=== PATIENT | male | born 1940 | race Caucasian/White ===

== ENCOUNTER 2017-01-11 14:04 | Observation (INO) | payer OTHER, BC ==
--- NOTE | 2017-01-11 14:27 | DR.GENAD ---
HPI - PCP Primary Care Physician: JANET - HPI Comment HPI Comment: PATIENTS SAID SMALL ABRASIONS ON PATIENTS BACK FROM SRATCHING IS OOZING BLOOD. PATIENT IS ON PLAVIX AND XARELTO. SHE HAS CHANGE FEW TIMES HIS UNDER CLOTHES. PATIENT ALSO HAVE RASH IN THE GROIN THAT IS WEEPING BLOODY SECREASION. HE HAS PERNICIOUS AND IRON DEFFICIECY ANEMIA. - Complaint/Symptoms Chief Complaint Doctors Comments: BLEEDING, ON BLOOD THINNERS. Chief Complaint:: STATES THAT LAST NIGHT, PT. HAD SOME BLOOD ON THE BACK OF HIS SHIRT AND SHE WASN'T SURE WHERE IT WAS COMING FROM. HE HAS ALSO HAD SOME BLEEDING FROM HIS GROIN/TESTICLE AREA. THERE WAS SMALL, SCATTERED SPOTS OF DRIED BLOOD ON A WHITE T-SHIRT THE HAD BROUGHT FROM HOME. PT. HAS REDNESS NOTED TO BOTH SIDES OF HIS GROIN BUT NO ACTIVE BLEEDING WAS SEEN UPON ARRIVAL TO ER. T - Nurses notes reviewed Nurses Notes Review: Yes - Source History Provided: Significant Other, EMS - Mode of Arrival Mode of Arrival: EMS - Timing Onset of Chief Complaint: 01/11/17 Came on: Suddenly - Duration Duration: Constant Duration: Days - Severity Severity: Moderate PMH - PMH Past Medical History: Yes Past Medical History: Anemia, Arthritis, Coronary Artery Disease, CVA, Diabetes , Dyslipidemia, Hypertension, [place], Renal Disease Past Surgical History: Yes Surgical History: Angioplasty/Stents, Cholecystectomy, Ortho Surgery, Other - Family History History of Family Medical Conditions: Yes Family Medical History: Diabetes Mellitus, [place], Hypertension - Social History Does patient currently use any type of tobacco product: No Have you used tobacco products in the last 12 months: No Type of Tobacco Use: None Does any household member use tobacco: No Alcohol Use: None Do you use any recreational Drugs:: No Lives With: Spouse Lives Where: Home - infectious screening In the last 2 months have you had wt loss of >10#?: NO Have you had fever, night sweats or hemotysis?: No Have you traveled outside the country in the last 6 months?: No Isolation: Standard ROS - Review of Systems Constitutional: Weakness, Fatigue, Loss of Appetite. negative: Chills, Fever Eyes: No Symptoms Reported. negative: Eye Pain, Discharge ENTM: Nose Congestion. negative: Ear Pain, Nose Discharge, Throat Pain Respiratoy: Non-Productive Cough, Short of Breath (ON EXERTION). negative: Wheezing, Hemoptysis Cardiovascular: Edema. negative: Chest Pain Gastrointestinal/Abdominal: No Symptoms Reported. negative: Abdominal Pain Genitourinary: No Symptoms Reported Neurological: Weakness, Dizziness Musculoskeletal: Back Pain, Muscle Pain Integumentary: Dryness Hematologic/Lymphatic: Anemia Endocrine: negative: Flushing All Other Systems: Reviewed and Negative PE - Vital Signs Vitals: Temperature 97.2 F Pulse Rate 53 Respiratory Rate 16 Blood Pressure [Right Calf] 191/84 Blood Pressure [Right Arm] 122/69 Blood Pressure [Left Arm] 190/80 Blood Pressure 184/79 O2 Sat by Pulse Oximetry 96 - General Limitations: No Limitations General Appearance: Alert - Head Head Exam: Normal Inspection - Eyes Eye exam: Normal Appearance - ENT ENT Exam: Normal External Ear Exam External Ear Exam: Normal External Inspection TM/Canal Exam: Bilateral Normal Nose Exam: Normal Nose Exam Mouth Exam: Normal Inspection Throat Exam: Normal Inspection - Neck Neck Exam: Trachea Midline - Chest Chest Inspection: Symmetric Chest Wall Rise - Respiratory Respiratory Exam: Normal Lung Sounds Bilat Respiratory Exam: Bilateral Clear to Auscultation - Cardiovascular Cardiovascular Exam: Regular Rate, Normal Rhythm, Normal Heart Sounds - Abdominal Exam Abdominal Exam: Normal Bowel Sounds, Soft. negative: Tenderness - Extremities Extremities Exam: Edema. negative: Tenderness - Back Back Exam: Paraspinal Tenderness - Neurologic Neurological Exam: Alert - Psychiatric Psychiatric Exam: Normal Affect, Normal Mood - Skin Skin Exam: Erythema MDM - Additional Information Additional Information Obtained From: Family - Differential Diagnosis Differential Diagnosis: HYPERCOAGULABLE STATE, ANEMIA, HEMORRHAGE, DEHYDRATION Course - Treatment Treatment: SEE ORDERS. - Education/Counseling Education/Counseling: Patient, Family, Education Educated On: Treatment, Diagnosis, Needs for Follow Up ROR - Labs Reviewed Laboratory Results Reviewed?: Yes Result Diagrams: 01/13/17 05:00 01/13/17 05:00 - Diagnosis Discharge Problem: Hypercoagulable state, Dehydration - Discharge Plan Disposition: ADMITTED INPATIENT Condition: Stable - Follow ups/Referrals - Instructions
[2017-01-11 14:49] LABS: BASOPHILS # (AUTO) 0.1 X10^3/uL (0.0-0.1); BASOPHILS % (AUTO) 1.1 % (0.2-1.0); EOSINOPHILS # (AUTO) 0.4 x10^3/uL (0.0-0.2); EOSINOPHILS % (AUTO) 4.2 % (0.9-2.9); HEMATOCRIT 28.7 % (42.0-54.0); HEMOGLOBIN 9.7 g/dL (13.5-18.0); LYMPHOCYTES # (AUTO) 1.6 X10^3/uL (1.3-2.9); LYMPHOCYTES % (AUTO) 17.5 % (21.0-51.0); MEAN CORPUSCULAR HEMOGLOBIN 29.1 pg (27.0-34.0); MEAN CORPUSCULAR HGB CONC 33.7 g/dL (33.0-35.0); MEAN CORPUSCULAR VOLUME 86.4 fL (80.0-100.0); MEAN PLATELET VOLUME 8.3 fL (7.4-11.0); MONOCYTES # (AUTO) 0.7 x10^3/uL (0.3-0.8); MONOCYTES % (AUTO) 7.5 % (0.0-13.0); NEUTROPHILS # (AUTO) 6.3 x10^3/uL (2.2-4.8); NEUTROPHILS % (AUTO) 69.7 % (42.0-75.0); PLATELET COUNT 221 X10^3/uL (150.0-450.0); RED BLOOD COUNT 3.32 X10^6/uL (4.7-6.0); RED CELL DISTRIBUTION WIDTH 18.3 % (11.6-16.5); WHITE BLOOD COUNT 9.1 X10^3/uL (3.6-10.0)
[2017-01-11 15:02] LABS: ALBUMIN 2.7 g/dL (3.4-5.0); CALCIUM 8.7 mg/dL (8.5-10.1); COR CA(FOR HYPOALB) 9.7 mg/dL (8.5-10.1); CREATININE 2.17 mg/dL (0.70-1.30); TOTAL PROTEIN 6.6 g/dL (6.4-8.2)
[2017-01-11] MEDS ORDERED: NIFEDIPINE CAP 10 MG ONE (17:02)
[2017-01-11] MEDS ORDERED: NIFEDIPINE CAP 10 MG PO ONE (17:08)
[2017-01-11] MEDS: NS 1000 ML 1,000 ML IV SCH (17:13)
[2017-01-11 18:25] LABS: BILIRUBIN,URINE NEGATIVE (NEGATIVE); BLOOD/HEMOGLOBIN,URINE 3+ (NEGATIVE); GLUCOSE, URINE 1+ (NEGATIVE); KETONES,URINE NEGATIVE (NEGATIVE); LEUKOCYTE ESTERASE ,URINE 3+ (NEGATIVE); NITRITES,URINE NEGATIVE (NEGATIVE); PROTEIN,URINE 2+ (NEGATIVE); UROBILINOGEN,URINE 1+ (NORMAL)
[2017-01-11 18:40] LABS: APPEARANCE,URINE HAZY (CLEAR); BACTERIA,URINE TRACE /HPF (NEGATIVE); COLOR,URINE YELLOW (YELLOW); RBC,URINE 0-2 /HPF (NEGATIVE); SQUAMOUS EPITHELIAL CELL,UR NEGATIVE /HPF (NEGATIVE)
[2017-01-11] MEDS: COREG TAB 25 MG PO SCH (21:31)
[2017-01-11] MEDS: COLACE CAP 100 MG PO SCH (21:31)
[2017-01-11] MEDS: ALDOMET PO SCH (21:31)
[2017-01-11] MEDS: PEPCID 20 MG IV PREMIX* 20 MG/50 ML BAG IV SCH (21:31)
[2017-01-11] MEDS: ATIVAN TAB 0.5 MG PO SCH (21:42)
[2017-01-11] MEDS: NYSTATIN POWDER TOP SCH (21:42)
[2017-01-11] MEDS: PHOSLO CAP 667 MG PO SCH (21:42)
[2017-01-11] MEDS: ROCEPHIN VIAL 1 GM 1 GM in NS 50 ML IV + SPIKE MINIBAG* 50 ML IV SCH (21:42)
[2017-01-11] MEDS: LANTUS SC SCH (21:55)
[2017-01-11] MEDS: PROTONIX INJ 40 MG VIAL IVP SCH (21:59)
[2017-01-11] MEDS: ZESTRIL TAB 10 MG PO SCH (21:59)
[2017-01-12 05:26] LABS: BASOPHILS # (AUTO) 0.1 X10^3/uL (0.0-0.1); BASOPHILS % (AUTO) 1.1 % (0.2-1.0); EOSINOPHILS # (AUTO) 0.3 x10^3/uL (0.0-0.2); EOSINOPHILS % (AUTO) 4.2 % (0.9-2.9); HEMATOCRIT 29.5 % (42.0-54.0); HEMOGLOBIN 9.9 g/dL (13.5-18.0); LYMPHOCYTES # (AUTO) 1.6 X10^3/uL (1.3-2.9); LYMPHOCYTES % (AUTO) 20.3 % (21.0-51.0); MEAN CORPUSCULAR HGB CONC 33.4 g/dL (33.0-35.0); MEAN PLATELET VOLUME 9.1 fL (7.4-11.0); MONOCYTES # (AUTO) 0.7 x10^3/uL (0.3-0.8); MONOCYTES % (AUTO) 8.4 % (0.0-13.0); NEUTROPHILS # (AUTO) 5.1 x10^3/uL (2.2-4.8); PLATELET COUNT 217 X10^3/uL (150.0-450.0); RED BLOOD COUNT 3.39 X10^6/uL (4.7-6.0); RED CELL DISTRIBUTION WIDTH 17.7 % (11.6-16.5); WHITE BLOOD COUNT 7.8 X10^3/uL (3.6-10.0)
[2017-01-12 05:40] LABS: ALBUMIN 2.9 g/dL (3.4-5.0); CALCIUM 8.9 mg/dL (8.5-10.1); CARBON DIOXIDE 21.2 mmol/L (21-32); COR CA(FOR HYPOALB) 9.8 mg/dL (8.5-10.1); CREATININE 2.32 mg/dL (0.70-1.30); TOTAL PROTEIN 6.9 g/dL (6.4-8.2)
[2017-01-12] MEDS: NS 1000 ML 1,000 ML IV SCH ×2 (06:07→19:54)
[2017-01-12] MEDS: NYSTATIN POWDER TOP SCH ×3 (06:10→21:01)
[2017-01-12] MEDS ORDERED: HumuLIN R SUBCUT PRN (06:16)
[2017-01-12] MEDS ORDERED: SYNTHROID 50 mcg TAB PO SCH (07:30)
[2017-01-12] MEDS ORDERED: LEXAPRO ONE (08:14)
[2017-01-12] MEDS: PHOSLO CAP 667 MG PO SCH ×2 (08:28→20:58)
[2017-01-12] MEDS: LEXAPRO PO SCH (08:28)
[2017-01-12] MEDS: VITAMIN C PO SCH (08:28)
[2017-01-12] MEDS: HEMOCYTE-PLUS PO SCH (08:28)
[2017-01-12] MEDS: COLACE CAP 100 MG PO SCH ×2 (08:29→20:58)
[2017-01-12] MEDS: CARDIZEM CD 180 MG PO SCH (08:29)
[2017-01-12] MEDS: ALDOMET PO SCH ×2 (08:29→20:58)
[2017-01-12] MEDS: PEPCID 20 MG IV PREMIX* 20 MG/50 ML BAG IV SCH (08:29)
[2017-01-12] MEDS: COREG TAB 25 MG PO SCH ×2 (08:29→20:59)
[2017-01-12] MEDS: PROTONIX INJ 40 MG VIAL IVP SCH (08:33)
[2017-01-12] MEDS: LANTUS SC SCH ×2 (09:00→20:59)
--- NOTE | 2017-01-12 10:31 | DR.H&P ---
H&P - History & Physical for Day of: H&P Date: 01/11/17 - Chief Complaint Chief Complaint: GENERALIZED WEAKNESS, POOR INTAKE, ABNORMAL BLEEDING - Allergies Allergies/Adverse Reactions: Allergies Allergy/AdvReac Type Severity Reaction Status Date / Time Gabapentin Allergy Verified 01/11/17 14:07 - History of Present Illness History of Present Illness: THIS IS A 76 YEAR OLD MALE, WHO IS A PATIENT OF OURS. HE PRESENTS TO THE EMERGENCY ROOM, VIA EMS, WITH REPORTING GENERALIZED WEAKNESS, POOR INTAKE, AND ABNORMAL BLEEDING. REPORTS PATIENT HAS NOT BEEN EATING OR DRINKING ADEQUATELY IN THE PAST WEEK. SHE REPORTS PATIENT HAS BEEN MORE AGITATED AND IRRITABLE. REPORTS FINDING BLOOD ON THE BACK OF PATIENT'S SHIRT WITH UNCERTAINTY OF SOURCE AND ALSO BLEEDING FROM HIS GROIN/TESTICLE AREA. ON EXAMINATION, GROIN IS NOTED WITH REDNESS, SKIN IRRITATION, INFLAMMATION, AND SCANT BLEEDING. AREA IS WARM AND MOIST. NO OTHER ACTIVE BLEEDING IS NOTED. ALSO REPORTS PATIENT'S BOWEL MOVEMENTS HAVE BEEN VERY DARK IN COLOR. LABS OBTAINED ON ARRIVAL TO ER. CBC WNL EXCEPT: H/H 9.7/28.7. CMP WNL EXCEPT: CHL 108, BUN/CREAT 40/2.17, GFR 32, GLUCOSE 208, ALBUMIN 2.7. URINALYSIS ABNORMALS: PROTEIN 2+, GLUCOSE 1+, OCCULT BLOOD 3+, UROBILINOGEN 1+, LEUKOCYTE ESTERASE 3+, WBC 25-50, BACTERIA TRACE; URINE CULTURE PENDING. STOOL OCCULT BLOOD POSITIVE. WE WILL ADMIT PATIENT FOR FURTHER TREATMENT AND EVALUATION. WE WILL HOLD PLAVIX AND ELIQUIS FOR NOW. WE WILL START IV FLUIDS, PEPCID, PROTONIX, AND ROCEPHIN IV. WE WILL CONTINUE TO MONITOR AND FOLLOW UP IN AM WITH LABS. - Past Medical History Past Medical History: Anemia, Arthritis, Coronary Artery Disease, CVA, Diabetes , Dyslipidemia, Hypertension, [place], Renal Disease Additional Medical History: Vision deficit, Constipation, Prior Dialysis - Past Surgical History Surgical History: Angioplasty/Stents, Cholecystectomy, Ortho Surgery Additional Surgical History: Right shoulder surgery - Family History Family Medical History: Diabetes Mellitus, [place], Hypertension - Social History Does patient currently use any type of tobacco product: No Have you used tobacco products in the last 12 months: No Type of Tobacco Use: None Does any household member use tobacco: No Alcohol Use: None Drug Use: None - Medications Home Medications: Apixaban [Eliquis] 5 mg PO BID 11/24/16 Calcium Acetate [PHOSLO CAP 667 MG *] 1 cap PO BID 11/24/16 Carvedilol [COREG TAB 25 MG *] 25 mg PO BID 11/24/16 Cholecalciferol [D3 2000] 4,000 unit PO HS 11/24/16 Clopidogrel Bisulfate [PLAVIX TAB 75 MG *] 75 mg PO DAILY 11/24/16 Diltiazem HCl Extended Release [Diltiazem HCl ER] 180 mg PO ONCE 11/24/16 Docusate Sodium [COLACE CAP 100 MG *] 100 mg PO BID 11/24/16 Escitalopram Oxalate 10 mg PO DAILY 11/24/16 Furosemide [LASIX TAB 40 MG *] 40 mg PO Q48H 11/24/16 Insulin Glargine (Lantus) [LANTUS INSULIN 10 ML VIAL *] 16 units SC BID Levothyroxine Sodium [Levoxyl] 1 tab PO DAILYAC 11/24/16 Lisinopril 20 mg PO HS 11/24/16 Lorazepam [ATIVAN 0.5 MG TAB *] 0.5 mg PO DAILY PRN 11/24/16 Pantoprazole Sodium [Protonix] 40 mg PO DAILY 11/24/16 Ascorbic Acid [VITAMIN C tab 500 mg *] 500 mg PO DAILY #90 tab 11/26/16 B-Complex W/ C-Min-Fe & Folic [HEMOCYTE-PLUS *] 1 tab PO DAILY #30 tab Methyldopa [ALDOMET 250 MG *] 1 tab PO BID 01/11/17 - Review of Systems Constitutional: Weakness, Malaise. denies: Fever, Chills Eyes: No Symptoms Reported. denies: Pain, Vision Change, Conjunctivae Inflammation, Eyelid Inflammation, Redness ENT: No Symptoms Reported. denies: Ear Pain, Ear Discharge, Nose Pain, Nose Discharge, Nose Congestion, Mouth Pain, Mouth Swelling, Throat Pain, Throat Swelling Respiratory: No Symptoms Reported. denies: Cough, Shortness of Breath, Hemoptysis, SOB with Excertion, Pleuritic Pain, Sputum, Wheezing Cardiovascular: No Symptoms Reported. denies: Chest Pain, Palpitations, Orthopnea, Paroxysmal Noc. Dyspnea, Edema, Light Headedness Gastrointestinal: Melena. denies: Nausea, Vomiting, Abdominal Pain, Diarrhea, Constipation, Hematochezia Genitourinary: Frequency. denies: Dysuria, Incontinence, Hematuria, Retention Musculoskeletal: No Symptoms Reported. denies: Shoulder Pain, Arm Pain, Back Pain, Hand Pain, Leg Pain, Foot Pain, Neck Pain Skin: Rash (Groin). denies: Lesions, Jaundice, Bruising, Wound, Ecchymosis Neurological: No Symptoms Reported. denies: Weakness, Numbness, Incoordination , Change in Speech, Confusion, Seizures - Physical Exam Vital Signs: Temperature 97.7 F Pulse Rate [Right Brachial] 50 Respiratory Rate 20 Blood Pressure [Right Arm] 201/86 Blood Pressure [Left Arm] 164/75 O2 Sat by Pulse Oximetry 96 Oriented: Person, Place Eyes: Normal. negative: Blurred Vision, Diplopia, Discharge, Pain, Redness, Photophobia Ear: Normal. negative: Swelling, Ecchymosis, Hemotypanum, Abrasion, Laceration Nose: Normal. negative: Injected, Discharge, Blood Throat: Dry. negative: Tonsillar Hypertrophy, Red, Exudate Respiratory: Clear Throughout Cardiovascular: Normal. negative: Murmur, Edema : Hematuria, Frequency, Discharge. negative: Dysuria, Testicular Pain Auscultation: Bowel Sounds: Decreased. negative: Bruit Palpation: Normal. negative: Spleen Enlarged, Liver Enlarged, Mass Pulsatile Tenderness: Normal. negative: Rebound, Guarding, Rigidity Skin: Decreased Turgur, Wound (Skin irritation and inflammation to groin) Musculoskeletal: Instability Psychiatric: Normal Mood Description: Calm, Appropriate Affect: Normal Speech Pattern: Appropriate, Unclear - Assessment/Plan (1) Dehydration Status: Acute Plan: ADMIT PATIENT, START IV FLUIDS, ENCOURAGE PO FLUIDS, MONITOR LABS. (2) Hypercoagulable state Status: Acute Plan: HOLD PLAVIX, ELIQUIS, MONITOR FOR ABNORMAL BLEEDING. (3) Generalized weakness Status: Acute Plan: ABOVE. (4) UTI (urinary tract infection) Qualifiers: Urinary tract infection type: acute cystitis Hematuria presence: with hematuria Indwelling urinary catheter type: I Encounter type: E Qualified Code(s): N30.01 - Acute cystitis with hematuria Status: Acute Plan: START ROCEPHIN IV, IV FLUIDS, AWAIT URINE CULTURE, MONITOR. (5) Intertrigo Status: Acute Plan: START NYSTATIN POWDER TO GROIN TID, KEEP AREA DRY, MONITOR. (6) CAD (coronary artery disease) Qualifiers: Coronary Disease-Associated Artery/Lesion type: [place] artery [place] vs. transplanted heart: [place] heart Associated angina: without angina Qualified Code(s): I25.10 - Atherosclerotic heart disease of [place] coronary artery without angina pectoris Status: Chronic (7) Diabetes mellitus, type 2 Qualifiers: Diabetes mellitus complication status: with kidney complications Diabetes mellitus complication detail: with chronic kidney disease Diabetic retinopathy severity: D Proliferative retinopathy type: P Diabetes mellitus macular edema: D Diabetes mellitus terminal system operator insulin use: with senior living use Laterality: L Chronic kidney disease stage: stage 2 (mild) Qualified Code( s): E11.22 - Type 2 diabetes mellitus with diabetic chronic kidney disease; N18.2 - Chronic kidney disease, stage 2 (mild); Z79.4 - penitentiary (current) use of insulin Status: Chronic (8) Renal disease Status: Chronic (9) History of CVA (cerebrovascular accident) Status: Chronic (10) History of [place] (myocardial infarction) Status: Chronic (11) History of anemia Status: Chronic (12) History of hypokalemia Status: Chronic (13) Hyperlipidemia Qualifiers: Hyperlipidemia type: mixed hyperlipidemia Qualified Code(s): E78.2 - Mixed hyperlipidemia Status: Chronic (14) Hypertension Qualifiers: Hypertension type: essential hypertension Qualified Code(s): I10 - Essential (primary) hypertension Status: Chronic (15) Hypothyroidism Qualifiers: Hypothyroidism type: acquired Qualified Code(s): E03.9 - Hypothyroidism, unspecified Status: Chronic (16) Osteoarthritis of right knee Qualifiers: Osteoarthritis type: primary Qualified Code(s): M17.11 - Unilateral primary osteoarthritis, right knee Status: Chronic
[2017-01-12] MEDS: ELIQUIS PO SCH ×2 (11:46→20:58)
[2017-01-12] MEDS: ROCEPHIN VIAL 1 GM 1 GM in NS 50 ML IV + SPIKE MINIBAG* 50 ML IV SCH (11:48)
[2017-01-12] MEDS: PLAVIX PO SCH (11:50)
--- NOTE | 2017-01-12 12:23 | PCM.PROG ---
Progress Note - Progress Note for Day of Date: 01/12/17 - Subjective Subjective: PATIENT CONTINUES WITH GENERALIZED WEAKNESS THIS MORNING. HE CONTINUES ON IV FLUIDS AND IV ROCEPHIN FOR DEHYDRATION AND UTI. WE ARE AWAITING FINAL URINE CULTURE AND SENSITIVITY. WE CONTINUE TO MONITOR PATIENT FOR HEMODYNAMIC STABILITY DUE TO DEHYDRATION. CBC WNL EXCEPT: H/H 9.9/29.5. CMP WNL EXCEPT: BUN/CREAT 44/2.32, GFR 29, GLUCOSE 279, ALK PHOS 125, ALBUMIN 2.9. PATIENT HAS NO FURTHER BLEEDING NOTED TO GROIN. PATIENT IS NOTED WITH A FEW SCABBED AREAS TO HIS BACK THAT ARE HEALING WITH NO ACTIVE BLEEDING. WE WILL RESTART PLAVIX, ELIQUIS, CONTINUE IV FLUIDS, IV ROCEPHIN, AND CONTINUE TO MONITOR. - Past Medical Family Social History Past Med/Fam/Surg Hx: No changes since H&P Allergies: Allergies Gabapentin Allergy (Verified 01/11/17 14:07) - Review of Systems ROS: No change since H&P - Vital Signs and I&O's Vital Signs: Temperature 97.4 F Pulse Rate [Right Brachial] 55 Respiratory Rate 20 Blood Pressure [Right Arm] 201/86 Blood Pressure [Left Arm] 181/79 O2 Sat by Pulse Oximetry 95 Intake and Output: Intake & Output 01/10/17 01/11/17 01/12/17 01/13/17 11:59 11:59 11:59 11:59 Intake Total 2210 Balance 2210 - Physical Exam Oriented: Person, Place Eyes: Normal. negative: Blurred Vision, Diplopia, Discharge, Pain, Redness, Photophobia Ear: Normal. negative: Swelling, Ecchymosis, Hemotypanum, Abrasion, Laceration Nose: Normal. negative: Injected, Discharge, Blood Throat: Dry. negative: Tonsillar Hypertrophy, Red, Exudate Respiratory: Normal Cardiovascular: Normal. negative: Murmur, Edema : Hematuria, Frequency, Discharge. negative: Dysuria, Testicular Pain Auscultation: Bowel Sounds: Decreased. negative: Bruit Palpation: Normal. negative: Spleen Enlarged, Liver Enlarged, Mass Pulsatile Tenderness: Normal. negative: Rebound, Guarding, Rigidity Skin: Decreased Turgur, Wound (Skin irritation and inflammation to groin; a few scabbed areas to back, healing) Musculoskeletal: Instability Psychiatric: Normal Mood Description: Calm, Appropriate Affect: Normal Speech Pattern: Appropriate, Unclear - Laboratory and Diagnostics Result Diagrams: 01/12/17 03:50 01/12/17 03:50 Labs: 01/11/17 18:09 Urine,Clean Catch Urine Culture - Preliminary Laboratory WBC 7.8 X10^3/uL (3.6-10.0) 01/12/17 03:50 RBC 3.39 X10^6/uL (4.7-6.0) L 01/12/17 03:50 Hgb 9.9 g/dL (13.5-18.0) L 01/12/17 03:50 Hct 29.5 % (42.0-54.0) L 01/12/17 03:50 MCV 87.0 fL (80.0-100.0) 01/12/17 03:50 MCH 29.0 pg (27.0-34.0) 01/12/17 03:50 MCHC 33.4 g/dL (33.0-35.0) 01/12/17 03:50 RDW 17.7 % (11.6-16.5) H 01/12/17 03:50 Plt Count 217 X10^3/uL (150.0-450.0) 01/12/17 03:50 MPV 9.1 fL (7.4-11.0) 01/12/17 03:50 Neut % 66.0 % (42.0-75.0) 01/12/17 03:50 Lymph % 20.3 % (21.0-51.0) L 01/12/17 03:50 [place] % 8.4 % (0.0-13.0) 01/12/17 03:50 Eos % 4.2 % (0.9-2.9) H 01/12/17 03:50 Baso % 1.1 % (0.2-1.0) H 01/12/17 03:50 Neut # 5.1 x10^3/uL (2.2-4.8) H 01/12/17 03:50 Lymph # 1.6 X10^3/uL (1.3-2.9) 01/12/17 03:50 [place] # 0.7 x10^3/uL (0.3-0.8) 01/12/17 03:50 Eos # 0.3 x10^3/uL (0.0-0.2) H 01/12/17 03:50 Baso # 0.1 X10^3/uL (0.0-0.1) 01/12/17 03:50 Absolute Nucleated RBC 0.0 /100WBC 01/12/17 03:50 Sodium 140 mmol/L (136-145) 01/12/17 03:50 Corrected Sodium 144 mmol/L (136-145) 01/12/17 03:50 Potassium 4.4 mmol/L (3.5-5.1) 01/12/17 03:50 Chloride 106 mmol/L (98-107) 01/12/17 03:50 Carbon Dioxide 21.2 mmol/L (21-32) 01/12/17 03:50 BUN 44 mg/dL (7-18) H 01/12/17 03:50 Creatinine 2.32 mg/dL (0.70-1.30) H 01/12/17 03:50 Est GFR (MDRD) Af Amer 35 (>60) L 01/12/17 03:50 Est GFR (MDRD) Non-Af 29 (>60) L 01/12/17 03:50 Glucose 279 mg/dL (65-99) H 01/12/17 03:50 Lactic Acid 0.5 mmol/L (0.4-2.0) 01/11/17 19:45 Calcium 8.9 mg/dL (8.5-10.1) 01/12/17 03:50 Corrected Calcium 9.8 mg/dL (8.5-10.1) 01/12/17 03:50 Total Bilirubin 0.30 mg/dL (0.2-1.0) 01/12/17 03:50 AST 10 Units/L (15-37) L 01/12/17 03:50 ALT 10 Units/L (12-78) L 01/12/17 03:50 Alkaline Phosphatase 125 Units/L (46-116) H 01/12/17 03:50 Total Protein 6.9 g/dL (6.4-8.2) 01/12/17 03:50 Albumin 2.9 g/dL (3.4-5.0) L 01/12/17 03:50 Globulin 4.0 g/dL (2.5-4.5) 01/12/17 03:50 Albumin/Globulin Ratio 0.7 Ratio (1.1-2.1) L 01/12/17 03:50 Specimen Type Clean catch urine 01/11/17 18:09 Urine Color Yellow (YELLOW) 01/11/17 18:09 Urine Appearance Hazy (CLEAR) 01/11/17 18:09 Urine pH 5.0 (5.0 - 8.0) 01/11/17 18:09 Ur Specific [place] 1.020 (1.000-1.030) 01/11/17 18:09 Urine Protein 2+ (NEGATIVE) 01/11/17 18:09 Urine Glucose (UA) 1+ (NEGATIVE) 01/11/17 18:09 Urine Ketones Negative (NEGATIVE) 01/11/17 18:09 Urine Occult Blood 3+ (NEGATIVE) 01/11/17 18:09 Urine Nitrite Negative (NEGATIVE) 01/11/17 18:09 Urine Bilirubin Negative (NEGATIVE) 01/11/17 18:09 Urine Urobilinogen 1+ (NORMAL) 01/11/17 18:09 Ur Leukocyte Esterase 3+ (NEGATIVE) 01/11/17 18:09 Urine RBC 0-2 /HPF (NEGATIVE) 01/11/17 18:09 Urine WBC 25-50 /HPF (NEGATIVE) 01/11/17 18:09 Ur Squamous Epith Cells Negative /HPF (NEGATIVE) 01/11/17 18:09 Urine Bacteria Trace /HPF (NEGATIVE) 01/11/17 18:09 Ur Culture Indicated? Yes/culture set up 01/11/17 18:09 Stool Description Fob tube 01/11/17 17:18 Stl Occult Blood (IFOB) Positive (NEGATIVE) A 01/11/17 17:18 - Plan (1) Dehydration Status: Acute Plan: CONTINUE IV FLUIDS, ENCOURAGE PO FLUIDS, MONITOR LABS. (2) UTI (urinary tract infection) Status: Acute Qualifiers: Urinary tract infection type: acute cystitis Hematuria presence: with hematuria Indwelling urinary catheter type: I Encounter type: E Qualified Code(s): N30.01 - Acute cystitis with hematuria Plan: CONTINUE ROCEPHIN IV, IV FLUIDS, AWAIT URINE CULTURE, MONITOR. (3) Generalized weakness Status: Acute Plan: ABOVE. (4) Intertrigo Status: Acute Plan: CONTINUE NYSTATIN POWDER TO GROIN TID, KEEP AREA DRY, MONITOR. (5) CAD (coronary artery disease) Status: Chronic Qualifiers: Coronary Disease-Associated Artery/Lesion type: [place] artery [place] vs. transplanted heart: [place] heart Associated angina: without angina Qualified Code(s): I25.10 - Atherosclerotic heart disease of [place] coronary artery without angina pectoris (6) Diabetes mellitus, type 2 Status: Chronic Qualifiers: Diabetes mellitus complication status: with kidney complications Diabetes mellitus complication detail: with chronic kidney disease Diabetic retinopathy severity: D Proliferative retinopathy type: P Diabetes mellitus macular edema: D Diabetes mellitus residential insulin use: with termination clerk use Laterality: L Chronic kidney disease stage: stage 2 (mild) Qualified Code( s): E11.22 - Type 2 diabetes mellitus with diabetic chronic kidney disease; N18.2 - Chronic kidney disease, stage 2 (mild); Z79.4 - termite inspector (current) use of insulin (7) Renal disease Status: Chronic (8) History of CVA (cerebrovascular accident) Status: Chronic (9) History of [place] (myocardial infarction) Status: Chronic (10) History of anemia Status: Chronic (11) History of hypokalemia Status: Chronic (12) Hyperlipidemia Status: Chronic Qualifiers: Hyperlipidemia type: mixed hyperlipidemia Qualified Code(s): E78.2 - Mixed hyperlipidemia (13) Hypertension Status: Chronic Qualifiers: Hypertension type: essential hypertension Qualified Code(s): I10 - Essential (primary) hypertension (14) Hypothyroidism Status: Chronic Qualifiers: Hypothyroidism type: acquired Qualified Code(s): E03.9 - Hypothyroidism, unspecified (15) Osteoarthritis of right knee Status: Chronic Qualifiers: Osteoarthritis type: primary Qualified Code(s): M17.11 - Unilateral primary osteoarthritis, right knee (16) Hypercoagulable state Status: Resolved
[2017-01-12 16:35] VITALS: BMI 23.8
[2017-01-12] MEDS: ATIVAN TAB 0.5 MG PO SCH ×2 (19:19→19:54)
[2017-01-12] MEDS ORDERED: SNACK - Diabetic Appropriate PO SCH (20:00)
[2017-01-12] MEDS: ZESTRIL TAB 10 MG PO SCH (20:59)
[2017-01-13 05:25] LABS: BASOPHILS # (AUTO) 0.1 X10^3/uL (0.0-0.1); BASOPHILS % (AUTO) 1.1 % (0.2-1.0); EOSINOPHILS # (AUTO) 0.4 x10^3/uL (0.0-0.2); EOSINOPHILS % (AUTO) 4.7 % (0.9-2.9); HEMOGLOBIN 9.4 g/dL (13.5-18.0); LYMPHOCYTES # (AUTO) 1.2 X10^3/uL (1.3-2.9); LYMPHOCYTES % (AUTO) 16.1 % (21.0-51.0); MEAN CORPUSCULAR HGB CONC 33.5 g/dL (33.0-35.0); MEAN CORPUSCULAR VOLUME 86.6 fL (80.0-100.0); MEAN PLATELET VOLUME 8.5 fL (7.4-11.0); MONOCYTES # (AUTO) 0.7 x10^3/uL (0.3-0.8); MONOCYTES % (AUTO) 8.7 % (0.0-13.0); NEUTROPHILS # (AUTO) 5.2 x10^3/uL (2.2-4.8); NEUTROPHILS % (AUTO) 69.4 % (42.0-75.0); PLATELET COUNT 204 X10^3/uL (150.0-450.0); RED BLOOD COUNT 3.23 X10^6/uL (4.7-6.0); WHITE BLOOD COUNT 7.6 X10^3/uL (3.6-10.0)
[2017-01-13] MEDS: NYSTATIN POWDER TOP SCH ×2 (05:43→14:21)
[2017-01-13 05:53] LABS: ALBUMIN 2.7 g/dL (3.4-5.0); CALCIUM 8.6 mg/dL (8.5-10.1); CARBON DIOXIDE 21.8 mmol/L (21-32); COR CA(FOR HYPOALB) 9.6 mg/dL (8.5-10.1); CREATININE 2.13 mg/dL (0.70-1.30); TOTAL PROTEIN 6.4 g/dL (6.4-8.2)
[2017-01-13] MEDS ORDERED: VITAMIN B-12 INJ IM ONE (08:26)
[2017-01-13] MEDS ORDERED: NS 100 ML IV 100 ML with VENOFER 200 MG IV NR ×2 (09:00)
[2017-01-13] MEDS ORDERED: PHARMACY CONSULT - DOSE _____ XX SCH (09:00)
[2017-01-13] MEDS ORDERED: DIFLUCAN PO SCH (09:00)
[2017-01-13] MEDS ORDERED: PEPCID 20 MG IV PREMIX* 20 MG/50 ML BAG IV SCH (09:00)
[2017-01-13] MEDS ORDERED: ZESTRIL TAB 10 MG PO SCH ×2 (09:00→21:00)
[2017-01-13] MEDS: ROCEPHIN VIAL 1 GM 1 GM in NS 50 ML IV + SPIKE MINIBAG* 50 ML IV SCH (09:20)
[2017-01-13] MEDS: PROTONIX INJ 40 MG VIAL IVP SCH (09:22)
[2017-01-13] MEDS: PHOSLO CAP 667 MG PO SCH (09:24)
[2017-01-13] MEDS: CARDIZEM CD 180 MG PO SCH (09:24)
[2017-01-13] MEDS: VITAMIN C PO SCH (09:24)
[2017-01-13] MEDS: COLACE CAP 100 MG PO SCH (09:24)
[2017-01-13] MEDS: HEMOCYTE-PLUS PO SCH (09:24)
[2017-01-13] MEDS: COREG TAB 25 MG PO SCH (09:24)
[2017-01-13] MEDS: ALDOMET PO SCH (09:24)
[2017-01-13] MEDS: ELIQUIS PO SCH (09:24)
[2017-01-13] MEDS ORDERED: LEXAPRO ONE (09:30)
[2017-01-13] MEDS: LEXAPRO PO SCH (09:35)
[2017-01-13] MEDS: NS 1000 ML 1,000 ML IV SCH (09:36)
[2017-01-13] MEDS: LANTUS SC SCH (09:36)
[2017-01-13] MEDS: PLAVIX PO SCH (09:49)
[2017-01-13] MEDS ORDERED: ZESTRIL TAB 10 MG PO ONE (12:30)
[2017-01-13 14:13] VITALS: BP 166/72
--- NOTE | 2017-01-13 15:51 | DR.CARTERD ---
- Discharge Summary for: Discharge Summary for Date of:: 01/13/17 - Admission Date Date of Admission: 01/11/17 - Admission Diagnoses Admission Diagnosis: (1) Dehydration (2) Hypercoagulable state (3) Generalized weakness (4) UTI (urinary tract infection) (5) Intertrigo (6) CAD (coronary artery disease) (7) Diabetes mellitus, type 2 (8) Renal disease (9) History of CVA (cerebrovascular accident) (10) History of DE (myocardial infarction) (11) History of anemia (12) History of hypokalemia (13) Hyperlipidemia (14) Hypertension (15) Hypothyroidism (16) Osteoarthritis of right knee - Discharge Date Discharge Date: 01/13/17 - Discharge Diagnoses Discharge Diagnosis: (1) Dehydration (2) Hypercoagulable state (3) Generalized weakness (4) UTI (urinary tract infection) (5) Intertrigo (6) CAD (coronary artery disease) (7) Diabetes mellitus, type 2 (8) Renal disease (9) History of CVA (cerebrovascular accident) (10) History of DE (myocardial infarction) (11) History of anemia (12) History of hypokalemia (13) Hyperlipidemia (14) Hypertension (15) Hypothyroidism (16) Osteoarthritis of right knee - Hospital Course Hospital Course: DAY ONE OF HOSPITAL STAY, THIS 76 YEAR OLD MALE, PATIENT OF OURS, PRESENTED TO THE EMERGENCY ROOM, VIA EMS, WITH REPORTING GENERALIZED WEAKNESS, POOR INTAKE, AND ABNORMAL BLEEDING. REPORTS PATIENT HAS NOT BEEN EATING OR DRINKING ADEQUATELY IN THE PAST WEEK. SHE REPORTED PATIENT HAD BEEN MORE AGITATED AND IRRITABLE THAN NORMAL. REPORTED FINDING BLOOD ON THE BACK OF PATIENT'S SHIRT WITH UNCERTAINTY OF SOURCE AND ALSO BLEEDING FROM HIS GROIN/ TESTICLE AREA. ON EXAMINATION, GROIN WAS NOTED WITH REDNESS, SKIN IRRITATION, INFLAMMATION, AND SCANT BLEEDING. AREA WAS WARM AND MOIST. NO OTHER ACTIVE BLEEDING WAS NOTED. ALSO REPORTED PATIENT'S BOWEL MOVEMENTS HAD BEEN VERY DARK IN COLOR. LABS OBTAINED ON ARRIVAL TO ER. CBC WNL EXCEPT: H/H 9.7/28.7. CMP WNL EXCEPT: CHL 108, BUN/CREAT 40/2.17, GFR 32, GLUCOSE 208, ALBUMIN 2.7. URINALYSIS ABNORMALS: PROTEIN 2+, GLUCOSE 1+, OCCULT BLOOD 3+, UROBILINOGEN 1+, LEUKOCYTE ESTERASE 3+, WBC 25-50, BACTERIA TRACE; URINE CULTURE PENDING. STOOL OCCULT BLOOD POSITIVE. WE ADMITTED PATIENT FOR FURTHER TREATMENT AND EVALUATION. WE HELD PLAVIX AND ELIQUIS. WE STARTED IV FLUIDS, PEPCID, PROTONIX , AND ROCEPHIN IV. DAY TWO OF HOSPITAL STAY, PATIENT CONTINUED WITH GENERALIZED WEAKNESS. HE CONTINUED ON IV FLUIDS AND IV ROCEPHIN FOR DEHYDRATION AND UTI. WE AWAITED FINAL URINE CULTURE AND SENSITIVITY. WE CONTINUED TO MONITOR PATIENT FOR HEMODYNAMIC STABILITY DUE TO DEHYDRATION. CBC WNL EXCEPT: H/H 9.9/29.5. CMP WNL EXCEPT: BUN/CREAT 44/2.32, GFR 29, GLUCOSE 279, ALK PHOS 125, ALBUMIN 2.9. PATIENT HAD NO FURTHER BLEEDING NOTED TO GROIN. PATIENT WAS NOTED WITH A FEW SCABBED AREAS TO HIS BACK THAT WERE HEALING WITH NO ACTIVE BLEEDING. WE RESTARTED PLAVIX, ELIQUIS, CONTINUED IV FLUIDS, IV ROCEPHIN, AND CONTINUED TO MONITOR. DAY THREE OF HOSPITAL STAY, UPON ROUNDS, PATIENT IS WITH PLEASANT AFFECT. AT BEDSIDE. SHE REPORTS PATIENT HAD A GOOD NIGHT. INTERTRIGO TO GROIN WAS HEALING WITH NO BLEEDING NOTED. NO FURTHER SIGNS OF ACTIVE BLEEDING NOTED. CBC WNL EXCEPT: H/H 9.4/28.0. CMP WNL EXCEPT: CHL 108, BUN/CREAT 40/2.13, GFR 32, GLUCOSE 182. ALBUMIN 2.7. WE PLANNED FOR DISCHARGE. PATIENT HAS A HISTORY OF PERNICIOUS ANEMIA. WE ADMINISTERED IRON INFUSION AND B12 INJECTION PRIOR TO DISCHARGE. BLOOD PRESSURE WAS 206/81 AND WE INCREASED LISINOPRIL TO BID. BLOOD PRESSURE IMPROVED TO 166/72. INSTRUCTIONS FOR MEDICATIONS AND FOLLOW UP WERE GIVEN TO PATIENT AND , BOTH VOICED UNDERSTANDING. PATIENT DISCHARGED HOME IN STABLE CONDITION WITH . - Discharge Medications Discharge Medications: Methyldopa [ALDOMET 250 MG *] 1 tab PO BID 01/11/17 [History] Amoxicillin & Pot Clavulanate [Augmentin 500-125 mg] 1 tab PO Q12H #20 tab 01/13 [Rx] Fluconazole [DIFLUCAN TAB 100 MG *] 100 mg PO DAILY #7 tab 01/13/17 [Rx] Lisinopril 20 mg PO BID #60 tab 01/13/17 [Rx] Nystatin (Topical) [NYSTATIN POWDER *] 1 applic TOP TID #1 btl 01/13/17 [Rx] Apixaban [Eliquis] 5 mg PO BID 11/24/16 Calcium Acetate [PHOSLO CAP 667 MG *] 1 cap PO BID 11/24/16 Carvedilol [COREG TAB 25 MG *] 25 mg PO BID 11/24/16 Cholecalciferol [D3 2000] 4,000 unit PO HS 11/24/16 Clopidogrel Bisulfate [PLAVIX TAB 75 MG *] 75 mg PO DAILY 11/24/16 Diltiazem HCl Extended Release [Diltiazem HCl ER] 180 mg PO ONCE 11/24/16 Docusate Sodium [COLACE CAP 100 MG *] 100 mg PO BID 11/24/16 Escitalopram Oxalate 10 mg PO DAILY 11/24/16 Furosemide [LASIX TAB 40 MG *] 40 mg PO Q48H 11/24/16 Insulin Glargine (Lantus) [LANTUS INSULIN 10 ML VIAL *] 16 units SC BID Levothyroxine Sodium [Levoxyl] 1 tab PO DAILYAC 11/24/16 Lorazepam [ATIVAN 0.5 MG TAB *] 0.5 mg PO DAILY PRN 11/24/16 Pantoprazole Sodium [Protonix] 40 mg PO DAILY 11/24/16 Ascorbic Acid [VITAMIN C tab 500 mg *] 500 mg PO DAILY #90 tab 11/26/16 B-Complex W/ C-Min-Fe & Folic [HEMOCYTE-PLUS *] 1 tab PO DAILY #30 tab - Discharge Disposition Discharge Disposition: PATIENT IS TO FOLLOW UP IN OUR OFFICE IN ONE WEEK.
== END 2017-01-13 15:20 | disposition home or self-care (01) ==
LOC: ER 14:04 → MED/SURG 16:59
PROVIDERS: ADMIT Internal Medicine; ATTEND Internal Medicine
DX: E86.0 Dehydration (principal); D68.69 Other thrombophilia; I25.10 Atherosclerotic heart disease of native coronary artery without angina pectoris; N30.01 Acute cystitis with hematuria; L30.4 Erythema intertrigo; E11.22 Type 2 diabetes mellitus with diabetic chronic kidney disease; N18.2 Chronic kidney disease, stage 2 (mild); Z79.4 Long term (current) use of insulin; M17.11 Unilateral primary osteoarthritis, right knee; B96.5 Pseudomonas (aeruginosa) (mallei) (pseudomallei) as the cause of diseases classified elsewhere; K92.1 Melena; Z86.73 Personal history of transient ischemic attack (TIA), and cerebral infarction without residual deficits; E03.8 Other specified hypothyroidism; R58 Hemorrhage, not elsewhere classified; R53.1 Weakness; D50.8 Other iron deficiency anemias; D51.0 Vitamin B12 deficiency anemia due to intrinsic factor deficiency; Z79.01 Long term (current) use of anticoagulants; I12.9 Hypertensive chronic kidney disease with stage 1 through stage 4 chronic kidney disease, or unspecified chronic kidney disease; E78.2 Mixed hyperlipidemia
CPT/HCPCS: 36415; 80053; 81001; 82270; 83605; 85025; 87040; 87086; 87088; 87186; 94760; 96365; 99284; A4222; C9113; S0028; G0378; J0696; J1815; J3420